=== PATIENT | male | born 1965 | race Caucasian/White ===

== ENCOUNTER 2017-06-08 18:24 | Inpatient (IN) | payer OTHER ==
[~2017-06-08] VITALS: Ht 182.9 cm; Wt 74.8 kg
--- NOTE | ~2017-06-08 | PN ---
Unit #: [id number] #: [id number] Patient: CARLOS CARPENTER [id number] [facility] [address] [place] [address] [id number] I MR#: [id number] NAME: CARLOS CARPENTER ROOM: 74 Age: 51 Sex: M Admission Date: 06/08/2017 : 1965 Attending Physician: Marc Barrett M.D. Admitting Physician: Marc Barrett M.D. Primary Care Physician: [facility] PROGRESS NOTES DATE OF SERVICE 06/11/2017 DISCUSSION Mr. Barrett continues complain of some difficulty with insomnia and claims he has "not slept a wink" since he has been in the hospital. The only nursing notes on this for last night are "patient slept well" from the evening shift. He would like to restart on his psychiatric medications and I told him that Neurontin would not be available at this point due to its not only new classification as a controlled substance but that Prozac and Vistaril could be restarted. He was alert and fully oriented with no evidence of psychosis. ASSESSMENT 1. Opioid dependence. 2. Bipolar disorder. PLAN We will restart Prozac 20 mg daily and Vistaril 50 mg every 6 hours as needed for anxiety. Dictated by... Kate Montgomery/deb TD: 06/12/2017 00:57 JOB #: [id number] [facility] PROGRESS NOTES Page 1 of 1 X Marc Barrett MD X PROGRESS NOTE
--- NOTE | ~2017-06-08 | PN ---
Unit #: [id number] #: [id number] Patient: CARSON CARPENTER [id number] [facility] [address] [place] [address] [id number] MR#: [id number] NAME: CARSON CARPENTER ROOM: P174 Age: 51 Sex: M Admission Date: 06/08/2017 : 1965 Attending Physician: Marc Barrett M.D. Admitting Physician: Marc Barrett M.D. Primary Care Physician: [facility] PROGRESS NOTES DATE 06/10/2017 DISCUSSION Carson complains of restless leg syndrome at night and leg cramping today. His mood is anxious with a congruent affect. He was alert and fully oriented with no psychosis. ASSESSMENT Opiate dependence. PLAN We will add Flexeril for additional detox symptoms and continue current treatment plan. Dictated by... Marc Barrett M.D. MRH/bzg TD: 06/11/2017 09:58 JOB #: [id number] [facility] PROGRESS NOTES Page 1 of 1 X Marc Barrett MD X PROGRESS NOTE
--- NOTE | ~2017-06-08 | HP ---
Unit #: [id number] #: [id number] Patient: CARLOS CARPENTER [id number] [place] [address] [id number] MR#: [id number] NAME: CARLOS CARPENTER ROOM: P174 Age: 51 Sex: M Admission Date: 06/08/2017 : 1965 Attending Physician: Marc Barrett M.D. Admitting Physician: Marc Barrett M.D. Primary Care Physician: Elisabeth Ibarra Family HISTORY AND PHYSICAL REASON FOR ADMISSION Acute psychiatric inpatient admission. HISTORY OF PRESENT ILLNESS The patient is a 51-year-old male with increased suicidal ideation and increased depression, thus was admitted for the same. PAST MEDICAL HISTORY Noncompliance with medications, prior history of depression, hepatitis C. PAST SURGICAL HISTORY As per chart. CURRENT HOME MEDICATIONS None. The patient is not taking. The patient had previously been on Prozac, Neurontin, Vistaril, Zyrtec, Motrin, Klonopin in the past. SOCIAL HISTORY Positive tobacco, alcohol, marijuana. Positive opiates and IV drug use. REVIEW OF SYSTEMS Positive abdominal cramping, muscle cramps, diaphoresis, depressed mood, irritability, nervousness, decreased appetite, restlessness, rhinorrhea, tremors, disheveled appearance, noted otherwise please see HPI. PHYSICAL EXAMINATION GENERAL: Awake, alert, oriented to person, place, and time. Well built, well nourished. Does not appear to be in any acute distress. VITAL SIGNS: Temperature 98, blood pressure 109/68, respiratory rate 16, and pulse 65. HEAD: Atraumatic. Normocephalic. EYES: Bilateral extraocular muscles are normal. Pupils equal, reactive to light and accommodation. Sclerae are normal. No jaundice. NECK: Neck is supple. No neck rigidity. No thyromegaly. No carotid bruit. No JVD. Oral mucosa is moist. CHEST: Bilateral vesicular breathing. Clear to auscultation. No basilar rales. CARDIOVASCULAR: S1 and S2 normal. No murmur, no gallop, no rub. ABDOMEN: Soft, nontender. No organomegaly. Bowel sounds are normal. No hernia, no masses, no rebound, no guarding. EXTREMITIES: No pitting edema. No calf tenderness. Extremity pulses, including dorsalis pedis, have good volume. BACK: Normal spine curvature. No spine tenderness. No costovertebral Unit #: [id number] #: [id number] Patient: CARLOS CARPENTER angle tenderness. REMOTELY PILOTED VEHICLE CONTROLLER: Cranial nerves normal bilaterally. Motor function bilaterally symmetric and normal. Sensory system normal. SKIN: Warm and dry. INITIAL IMPRESSION 1. Acute psychiatric inpatient admission. 2. Suicidal ideation. 3. Hepatitis C. 4. Noncompliance with medications. PLAN As per psychiatrist, medical condition stable, medical prognosis is fair. There are no medical contraindications to patient participating in activities while here at [facility] [employer]. Dictated by... Kate Yeh/cm TD: 06/09/2017 16:55 JOB #: [id number] HISTORY AND PHYSICAL Page 1 of 1 X Mayra Stevenson MD X HISTORY AND PHYSICAL
--- NOTE | ~2017-06-08 | PA ---
Unit #: [id number] #: [id number] Patient: CARLOS CARPENTER [id number] [place] [address] [id number] MR#: [id number] NAME: CARLOS CARPENTER ROOM: P174 Age: 51 Sex: M Admission Date: 06/08/2017 : 1965 Date of Assessment: 06/09/2017 Attending Physician: Marc Barrett M.D. Admitting Physician: Marc Barrett M.D. Primary Care Physician: Elisabeth [facility] Family PSYCHIATRIC ASSESSMENT DATE OF SERVICE 06/09/2017. INFORMANTS The patient, reliable; OLOP, reliable. CHIEF COMPLAINT "tired of living this way." HISTORY OF PRESENT ILLNESS Mr. Byrd is a 51-year-old man, who reports the use of IV heroin to the extent that it interferes with his ability to focus and participate in daily activities. He reports a history of bipolar disorder, but has not been on medications for a number of years. He is using 1 to 1.5 mg of heroin daily. He has also purchased Suboxone off the street in the past. He was unable to contract for safety, and was admitted for stabilization. PAST PSYCHIATRIC HISTORY This is the patient's first admission to this facility, but he has been treated through [facility] in the past and [facility]. He does not recall his previous medications. FAMILY PSYCHIATRIC HISTORY There is an extensive family history of alcoholism addictions and mental illness in the family. SOCIAL HISTORY The patient denies a history of childhood abuse or neglect. He is a heterosexual man, who is currently unemployed and homeless. He is currently living with his sister. PAST MEDICAL HISTORY Significant for hepatitis C. MEDICATIONS None currently. ALLERGIES No known medication allergies. SUBSTANCE USE HISTORY As noted the patient has extensive history of chemical dependence with substance including alcohol, cannabis, hallucinogens, and cocaine. He is Unit #: [id number] #: [id number] Patient: CARLOS CARPENTER currently using opioids with 1 to 1.5 g daily. MENTAL STATUS EXAMINATION The patient presented as a disheveled man, appearing older than his stated age. He was cooperative with the examination. His speech was spontaneous and easily understood. Musculoskeletal examination was calm. His mood was mildly anxious with a congruent affect. He was alert and fully oriented. His memory and concentration were intact. His thought processes were logical with no active psychosis. He denied active suicidal ideation, intent, or plan. His insight and judgment were fair. His fund of knowledge and abstraction were fair. ASSETS AND LIABILITIES The patient knows local resources and presents voluntarily for treatment. Liabilities include difficulty establishing sobriety and lack of current mental health care. ADMITTING DIAGNOSES AXIS I: Opiate dependence withdrawal, uncomplicated, F1.23. Bipolar disorder by history. AXIS II: No diagnosis. AXIS III: Hepatitis C. AXIS IV: AXIS V: PSYCHIATRIC PLAN The patient was admitted and placed on the opioid detox protocol and suicide precautions. We will contact previous providers and try to ascertain his previous medication regimen to restart. In the meantime, he will enroll in dual diagnosis groups and activities. TREATMENT GOALS Resolution of SI, improvement in insight, and improvement in coping skills. DISCHARGE PLANNING Follow up with [facility]. ESTIMATED LENGTH OF STAY 5 days. Dictated by... Marc Barrett M.D. JACQUI/cm TD: 06/09/2017 13:42 JOB #: [id number] Unit #: [id number] #: [id number] Patient: CARLOS CARPENTER PSYCHIATRIC ASSESSMENT Page 1 of 1 X Marc Barrett MD X PSYCHIATRIC ASSESSMENT
[2017-06-09 12:39] LABS: ALBUMIN SERUM 3.7 g/dL (3.5-5.0); BILIRUBIN,TOTAL 0.8 mg/dL (0.2-2.0); BUN/CREATININE RATIO 21.42; CALCIUM SERUM 9.3 mg/dL (8.4-10.2); CREATININE SERUM 0.7 mg/dL (0.6-1.4); GLOM FILT RATE Estimated 107.8 mL/min (>60); POTASSIUM 4.7 mmol/L (3.5-5.1); PROTEIN TOTAL SERUM 6.8 g/dL (6.0-8.3)
== END 2017-06-11 21:12 | disposition left against medical advice (07) | DRG 894 ==
LOC: P1E 18:24
PROVIDERS: Psychiatry & Neurology Psychiatry
PROC: HZ2ZZZZ Detoxification Services for Substance Abuse Treatment (ICD-10-PCS; principal; 2017-06-09)
DX: F11.23 Opioid dependence with withdrawal (principal); R45.851 Suicidal ideations; F31.9 Bipolar disorder, unspecified; B19.20 Unspecified viral hepatitis C without hepatic coma; Z91.14 Patient's other noncompliance with medication regimen
CPT/HCPCS: 80053

== ENCOUNTER 2017-07-13 15:07 | Inpatient (IN) | payer OTHER ==
[~2017-07-13] VITALS: Ht 182.9 cm; Wt 76.2 kg
--- NOTE | ~2017-07-13 | PA ---
Unit #: [id number] #: [id number] Patient: CARLOS CARPENTER [id number] [facility] [address] [place] [address] [id number] I MR#: [id number] NAME: CARLOS CARPENTER ROOM: P211 Age: 51 Sex: M Admission Date: 07/13/2017 : 1965 Date of Assessment: Attending Physician: Marc Barrett M.D. Admitting Physician: Marc Barrett M.D. Primary Care Physician: Elisabeth Ibarra Family PSYCHIATRIC ASSESSMENT INFORMANTS The patient reliable; JEFFERY, reliable. CHIEF COMPLAINT Opioid dependence. HISTORY OF PRESENT ILLNESS Mr. Byrd is a 51-year-old man, who has recently been to this facility for opioid dependence, but reports that he relapsed after leaving the hospital and has been unable to maintain sobriety. He had some suicidal ideation, was unable to contract for safety. He was readmitted for further detox and stabilization. PAST PSYCHIATRIC HISTORY This is second admission to this facility and he has also been treated at [facility] and the [facility]. FAMILY PSYCHIATRIC HISTORY Extensive family history of alcoholism, addiction, and unspecified mental illness. SOCIAL HISTORY The patient denies a history of childhood abuse or neglect. He is a heterosexual man, who is currently homeless and unemployed and occasionally staying with his sister. PAST MEDICAL HISTORY Hepatitis C. MEDICATIONS None currently. ALLERGIES No known medication allergies. SUBSTANCE USE HISTORY As noted above. MENTAL STATUS EXAMINATION The patient presented as a disheveled man, appearing older than his stated age. He was irritable, but cooperative with the examination. His speech was spontaneous and easily understood. His musculoskeletal examination was calm. His mood was irritable with a congruent affect. He was alert Unit #: [id number] #: [id number] Patient: CARLOS CARPENTER and fully oriented. Memory and concentration were fair. Thought processes were goal directed with no active psychosis. He denied suicidal ideation, intent, or plan. Insight and judgment, fair. Fund of knowledge and abstraction, fair. ASSETS AND LIABILITIES The patient knows local resources and is presenting once again voluntarily for treatment. Liabilities include difficulty maintaining sobriety. ADMITTING DIAGNOSES AXIS I: Opioid dependence withdrawal, uncomplicated and bipolar disorder. AXIS II: No diagnosis. AXIS III: Hepatitis C AXIS IV: AXIS V: PSYCHIATRIC PLAN The patient was admitted and placed on the opioid detox protocol. He will enroll in dual diagnosis groups and activities, and physical examination and laboratory studies will be ordered and reviewed. TREATMENT GOALS Resolution of SI and intoxication, improvement in insight, and improvement in coping skills. DISCHARGE PLAN Follow up with [facility]. ESTIMATED LENGTH OF STAY 5 days. Dictated by... Marc Barrett M.D. JACQUI/cm TD: 07/20/2017 06:32 JOB #: [id number] PSYCHIATRIC ASSESSMENT Page 1 of 1 X Marc Barrett MD X PSYCHIATRIC ASSESSMENT
--- NOTE | ~2017-07-13 | DS ---
Unit #: [id number] #: [id number] Patient: CARLOS HURST [id number] [place] [address] [id number] I MR#: [id number] NAME: CARLOS HURST ROOM: P211 Age: 51 Sex: M Admission Date: 07/13/2017 : 1965 Discharge Date: 07/15/2017 Attending Physician: Marc Barrett M.D. Primary Care Physician: -[facility] Family DISCHARGE SUMMARY REASON FOR ADMISSION Mr. Hurst is a 51-year-old man who came in reporting a relapse on heroin use and some depression. He was equivocal about suicidal ideation but was in active detox and was admitted for stabilization. DIAGNOSTIC STUDIES LABORATORY DATA: Please see hospital chart. HOSPITAL COURSE Mr. Hurst was admitted and placed on the opiate detox protocol. He had an uneventful period of inpatient detox with no significant medical issues and no problems with his detox process. On the date of discharge he said he was "done here" and appeared to feel that the inpatient milieu was no longer helpful for him. He continued to deny suicidal ideation. DISCHARGE DIAGNOSES Brady I Opiate dependence withdrawal uncomplicated. Depressive disorder, NOS. Brady II No diagnosis. Brady III Hepatitis C. Brady IV Brady V INSTRUCTED TO PATIENT Followup with chemical dependence program of the patient's choice. DISCHARGE MEDICATIONS None. CONDITION AT DISCHARGE Fair. PROGNOSIS Fair. DIET AND ACTIVITY Ad rio. Dictated by... Marc Barrett M.D. Unit #: [id number] #: [id number] Patient: CARLOS HURST MRH/ts TD: 07/23/2017 08:53 JOB #: [id number] DISCHARGE SUMMARY Page 1 of 1 X Marc Barrett MD X DISCHARGE SUMMARY
--- NOTE | ~2017-07-13 | HP ---
Unit #: [id number] #: [id number] Patient: CARLOS CARPENTER [id number] [place] [address] [id number] MR#: [id number] NAME: CARLOS CARPENTER ROOM: P211 Age: 51 Sex: M Admission Date: 07/13/2017 : 1965 Attending Physician: Marc Barrett M.D. Admitting Physician: Marc Barrett M.D. Primary Care Physician: [facility] HISTORY AND PHYSICAL HISTORY OF PRESENT ILLNESS Patient is a 51-year-old male admitted to [address] [place] [address] on 07/14/2017 to withdrawal from heroin. PAST MEDICAL HISTORY 1. Drug abuse that includes heroin. 2. Hepatitis C. PAST SURGICAL HISTORY Patient denies. SOCIAL HISTORY He is unemployed. He lives with his sister. He uses heroin every day. FAMILY MEDICAL HISTORY Noncontributory. ALLERGIES No known drug allergies. CURRENT MEDICATIONS Patient is not on any home medications. REVIEW OF SYSTEMS CONSTITUTIONAL: No fever or chills. HEENT: Denies any sore throat, ear pain or runny nose. CARDIOVASCULAR: Denies chest pain, irregular heart rhythm or palpitations. CHEST: Denies shortness of breath or cough. No hemoptysis. GASTROINTESTINAL: Denies nausea, vomiting, diarrhea or chronic constipation. ENDOCRINE: Denies history of increased thirst or urination. No recent significant weight loss or gain. GENITOURINARY: Denies dysuria, frequency, or hematuria. SKIN: Denies any rashes. HEMATOLOGIC: Denies history of increased bleeding or bruising. MUSCULOSKELETAL: Denies any hot, swollen joints. No generalized muscle pain. NEUROLOGIC: Denies problems with vision or speech. No frequent, severe headaches. No numbness, tingling or weakness in any extremities. Denies loss of bladder or bowel control. PHYSICAL EXAM GENERAL: He is awake, alert and oriented in no acute distress. Unit #: [id number] #: [id number] Patient: CARLOS CARPENTER VITAL SIGNS: Temperature 97.6, heart rate 82, respiration 18, blood pressure 90/57. HEIGHT: 6 foot 0. WEIGHT: 168 pounds. SKIN: Warm and dry without rash or lesion. HEENT: Normocephalic. TMs not viewed. Oral and nasal passages clear. Conjunctivae clear. PERRLA. EOMs intact. NECK: Supple without lymphadenopathy or thyromegaly. HEART: Regular rate and rhythm without murmur. LUNGS: Clear. ABDOMEN: Soft, nontender. : Not done. EXTREMITIES: No evidence of cyanosis, clubbing or edema. Moves all without focal deficit. NEUROLOGICAL: Grossly within normal limits. Cranial Nerves: II: Visual morse are intact. III, IV AND : Extraocular movements are intact. Pupils are equal, round and reactive to light. V: Facial sensation is grossly normal. VII: Facial movements and expression are normal. VIII: Auditory acuity grossly intact. IX, X: Uvula is midline. Phonation is normal. XI: Patient shrugs shoulders and turns head normally. XII: Tongue protrudes in the midline. Sensory and Motor Function: Sensory and motor sensation is grossly normal. Motor: moves all extremities well. IMPRESSION 1. Heroin dependence. 2. Hepatitis C. RECOMMENDATIONS Psychiatric per psychiatrist. MEDICAL: No contraindication to participate in facility activities. MEDICAL PROGNOSIS Good. MEDICAL CONDITION Stable. Dictated by... Pauly Minor/deb TD: 07/16/2017 01:29 JOB #: [id number] Unit #: [id number] #: [id number] Patient: CARLOS CARPENTER HISTORY AND PHYSICAL Page 1 of 1 X EMMA DURAN APRN X HISTORY AND PHYSICAL
[2017-07-14 13:12] LABS: ALBUMIN SERUM 3.4 g/dL (3.5-5.0); BILIRUBIN,TOTAL 0.8 mg/dL (0.2-2.0); BUN/CREATININE RATIO 15.71; CALCIUM SERUM 9.2 mg/dL (8.4-10.2); CREATININE SERUM 0.7 mg/dL (0.6-1.4); GLOM FILT RATE Estimated 107.8 mL/min (>60); POTASSIUM 4.4 mmol/L (3.5-5.1); PROTEIN TOTAL SERUM 6.9 g/dL (6.0-8.3)
[2017-07-14 13:27] LABS: BASOPHIL# 0.1 X10e3 (0-0.3); BASOPHIL% 1.3 % (0-2.5); EOSINOPHIL# 0.5 X10e3 (0-0.7); EOSINOPHIL% 6.9 % (0.0-7.0); HEMATOCRIT 38.5 % (38.0-50.0); HEMOGLOBIN 12.9 gm/dL (13.0-16.0); LYMPHOCYTE# 1.3 X10e3 (1.0-3.5); LYMPHOCYTE% 20.1 % (17.0-45.0); MEAN CELL VOLUME 86.2 FL (83-96); MEAN CORPUSCULAR HEMOGLOBIN 28.9 PG (28-34); MEAN CORPUSCULAR HGB CONC 33.5 g/dL (30-36); MEAN PLATELET VOLUME 7.7 FL (6.5-11.5); MONOCYTE# 0.7 X10e3 (0-1.0); MONOCYTE% 11.1 % (3.0-12.0); NEUTROPHIL% 60.6 % (40-75); PLATELET COUNT 263 X10e3 (140-420); RED BLOOD COUNT 4.46 X10e (3.90-5.60); WHITE BLOOD COUNT 6.5 X10e3 (4.0-10.5)
[2017-07-14 13:32] LABS: DIFF IND NO
[2017-07-18 07:31] LABS: HA AB IGM (HEPPAN) Nonreactive (()); HB CORE AB IGM (HEPPAN) Nonreactive (Nonreactive); HB S AG (HEPPAN) Nonreactive (Nonreactive); HEP C AB (HEPPAN) Reactive (Nonreactive)
== END 2017-07-15 11:30 | disposition home or self-care (01) | DRG 897 ==
LOC: P2S 19:50
PROVIDERS: Psychiatry & Neurology Psychiatry
DX: F11.20 Opioid dependence, uncomplicated (principal); B19.20 Unspecified viral hepatitis C without hepatic coma
CPT/HCPCS: 80053; 80074; 85025; 87522; 87806